=== PATIENT | female | born 1965 | race Caucasian/White ===

== ENCOUNTER 2017-06-20 06:21 | Day surgery (SDC) | payer BC ==
[2017-06-19 15:05] VITALS: BMI 56.4
[~2017-06-20] VITALS: Ht 154.9 cm; Wt 130.0 kg
[~2017-06-20 06:21] MED LIST: AMLO-147 PO; AMPH30CA7 PO; CLON0.3T PO; DESL5TAB29 PO; FERR160T11 PO; LORA10CA PO; MONT4TAB8 PO; MULT-552 PO; TRIA1CAP56 PO; [UNRECOGNIZED DRUG - CODE]
[2017-06-20] MEDS ORDERED: LIDOCAINE 2% (SDV) 5 ML INJ ONE (07:00)
[2017-06-20 07:01] VITALS: Ht 154.9 cm; Wt 130.0 kg
[2017-06-20 07:06] VITALS: BP 140/69; PULSE 101; RESP 19
[2017-06-20] MEDS ORDERED: PROPOFOL 40 ML ONE (08:36)
[2017-06-20 08:42] VITALS: BP 105/47; PULSE 78; RESP 23
--- NOTE | 2017-06-20 08:46 | OPR ---
Date/Time of Note Date/Time of Note DATE: 06/20/17 TIME: 08:42 Operative Report Preoperative Diagnosis r/o pud Postoperative Diagnosis antral erosions Operation/Procedure Performed egd Surgeon see signature line Informatics Pharmacist none Anesthesia Type: MAC Anesthesiologist: KOJO PAEZ Estimated Blood Loss: none Transfusion none Specimen gastric bx Grafts/Implants none Tubes/Drains none Complications none Pt Condition Post Procedure: stable Indications r/o pud Procedure Description egd done under mac antral erosions noted LUCIA SWANSON MD Jun 20, 2017 08:46
[2017-06-20 08:47] VITALS: BP 128/59; PULSE 80; RESP 22
[2017-06-20 08:52] VITALS: BP 116/60; PULSE 85; RESP 25
[2017-06-20 08:57] VITALS: BP 117/60; PULSE 88; RESP 22
[2017-06-20 09:10] VITALS: BP 121/56; PULSE 80; RESP 18
--- NOTE | 2017-06-21 09:30 | GILP ---
DATE OF PROCEDURE: PROCEDURE: Esophagogastroduodenoscopy. PREOPERATIVE DIAGNOSIS: Patient presenting with history of having morbid obesity. She is scheduled to have surgery, which is a gastric sleeve procedure. Procedure needs to be performed to rule out peptic ulcer disease, esophagitis, etc. POSTOPERATIVE DIAGNOSIS: Two antral erosions noted. Biopsies were done H. pylori biopsy also was d one. DESCRIPTION OF PROCEDURE: After the informed written consent was obtained, the patient was brought to the operating room and monitored anesthesia care was given by anesthesiologist, Dr. Lloyd. W hen the patient was somnolent on the left lateral position, Olympus video upper endoscope was introd uced into the oropharynx, then into the esophagus. Entire esophagus appeared normal, no evidence of any mucosal abnormality detected. Scope at this time was advanced into the stomach. Two erosions were noted in the prepyloric area. Multiple biopsies were obtained to rule out malignancy. The res t of the stomach was examined. Some petechia type of lesions were noted in the fundus of the stomac h only to a limited extent. Biopsy was done from the antrum to the lesser curvature of the fundus to rule out H. pylori infection. Duodenum appeared normal up to the end of the third portion. Scop e at this time was withdrawn and no additional abnormalities detected and the procedure was terminat ed. PLAN: Recommend proton pump inhibitor therapy and wait for the pathology report. Dictated By: LUCIA COMBS/NTS Conf#: [id number] DID#: [id number] CC: LUCIA SWANSON MD;*EndCC*
== END 2017-06-20 10:00 | disposition home or self-care (01) ==
LOC: GIL 06:21 → SDS 06:21 → GIL 10:00
PROVIDERS: ATTEND Internal Medicine Gastroenterology
DX: Z01.818 Encounter for other preprocedural examination (principal); E66.01 Morbid (severe) obesity due to excess calories; Z68.43 Body mass index [BMI] 50.0-59.9, adult; J45.909 Unspecified asthma, uncomplicated; K21.9 Gastro-esophageal reflux disease without esophagitis; I10 Essential (primary) hypertension

== ENCOUNTER → 2017-06-30 | Outpatient (CLI) | payer BC ==
[~2017-06-30] MED LIST changes: +REGADENOSON 0.4 MG/5 ML SYG ONE
--- NOTE | 2017-06-30 12:23 | CARRPT ---
DATE OF PROCEDURE: 06/30/2017 REASON FOR STRESS TESTING: Chest pain, shortness of breath, assess for ischemia. Baseline vital si gns and electrocardiogram. Preoperative evaluation electrocardiogram, assess for ischemia. BASELINE VITAL SIGNS AND ELECTROCARDIOGRAM: Pulse 87, blood pressure 143/82. Electrocardiogram rev eals normal sinus rhythm, rate of 87, normal axis, normal intervals, isolated T-wave inversion in le ad aVL. PROCEDURE: The patient with standard Lexiscan infusion protocol over 10 seconds followed by t racer. The patient's test was stopped due to completion of protocol. Maximal achieved blood pressu re during the test 168/80. Maximal heart rate during the test 100. ELECTROCARDIOGRAM FINDINGS: The patient did not develop any new Lexiscan-induced ST or T-wave le es from baseline abnormalities. No documented PVCs. SYMPTOMS: The patient had mild complaints of shortness of breath during stress testing and palpitat ions, but no chest pain. These all resolved during recovery. IMPRESSION: 1. No Lexiscan-induced ST or T-wave changes from baseline abnormalities for cardiac ischemia. 2. No complaints of chest pain during stress testing, mild shortness breath and tachycardia which r esolved in recovery. 3. No documented premature ventricular contractions during stress testing. 4. Report of nuclear images to follow in separate dictation. Dictated By: JUANIS KUMAR/AMAURY Conf#: [id number] DID#: [id number]
--- NOTE | 2017-06-30 13:07 | RADRPT ---
PROCEDURE: Lexiscan myocardial perfusion study CLINICAL INDICATION: 51 -year-old patient complaining of chest pain. TECHNIQUE: Lexiscan 0.4 mg intravenously separate acquisition gated myocardial perfusion SPECT usi ng Tc 99m Myoview 39.4 mCi intravenously at stress and Tc-99m Myoview, 13.1 mCi intravenously at res t was performed using the rest/stress sequence. Poststress Myoview SPECT images were obtained in th e supine position. COMPARISON: No prior studies. FINDINGS: Perfusion images reveal no evidence of perfusion defects. Lexiscan post stress gated SPECT images demonstrate no wall motion abnormalities. IMPRESSION: 1. No evidence of stress-induced ischemia. 2. No wall motion abnormalities. 3. The left ventricle ejection fraction at stress is 70%. A call report was made to Dr. Reed at the 1/5 p.m. on June 30, 2017. RPTAT: HH .Anel Mireles MD, MD Date Time Electronically viewed and signed by .Anel Mireles MD, on 06/30/2017 13:06 .L/
--- NOTE | 2017-06-30 18:27 | RADRPT ---
Echocardiogram Report Patient Name: SHEYLA VANESSA Gender: Female Date: 1965 Study Date: 30-Jun-2017 Cisco Engineer: WOLFGANG Location: OUTPATIENT Ref. Physician: JUANIS REED Quality: Good Procedures: Transthoracic echocardiogram with complete 2D, M-Mode, and doppler examination. Indications: Abnormal EKG. Pre-op. 2D/M Mode Doppler Measurement Value Normal Ranges Measurement Value Normal Ranges AoR Diam MM 2.8 cm OZZIE Vmax 1.9 cm2 ACS MM 1.8 cm OZZIE VTI 1.9 cm2 LA/Ao MM 1.2 AV Peak Panchito 1.5 m/sec LA Dimen MM 3.4 cm AV Peak PG 9.5 mmHg LVIDd 2D 4.7 3.5 - 5.6 cm LVOT Peak Panchito 1.1 m/sec LVIDs 2D 3.1 2.1 - 4.1 cm LVOT Peak PG 5.2 mmHg LVPWd 2D 1.1 0.6 - 1.1 cm MV E Peak Panchito 0.8 m/sec IVSd 2D 1.0 0.6 - 1.1 cm MV A Peak Panchito 1.1 m/sec EDV 2D 102.6 cm3 MV E/A 0.8 ESV 2D 28.7 cm3 MV Decel Time 210 msec EF 2D 64.0 50.0 - 65.0 % MV Decel [place] 4 LVOT Diam 1.8 cm MV E/A 0.8 TR Peak Panchito 2.3 m/sec TR Peak PG 21.7 mmHg Findings Left Ventricle: Normal left ventricular systolic function. Overall, normal left ventricular systolic function. Not all segments visualized. Normal left ventricular cavity size. Normal left ventricular wall thickness. Ejection fraction is visually estimated at 60 %. Tissue Doppler/Mitral Doppler indices are consistent with impaired relaxation (Stage I diastolic dysfunction). Right Ventricle: Normal right ventricular size. Left Atrium: The left atrium is normal in size. Right Atrium: The right atrium is normal in size. Mitral Valve: Normal appearance and function of the mitral valve with trace physiologic regurgitation. Aortic Valve: Normal appearance of the aortic valve. No significant aortic stenosis or insufficiency. Aortic sclerosis without stenosis. Tricuspid Valve: Normal appearance and function of the tricuspid valve with trace physiologic regurgitation. Estimated peak PA systolic pressure 25 mmHg. There is trace tricuspid regurgitation. Pulmonic Valve: Pulmonic valve not well visualized however velocity is normal. Pericardium: Normal pericardium with no significant pericardial effusion. Aorta: Normal aortic root. IVC: The IVC is not well visualized. Conclusions 1.Normal left ventricular systolic function. Overall, normal left ventricular systolic function. Not all segments visualized. Normal left ventricular cavity size. Normal left ventricular wall thickness. Ejection fraction is visually estimated at 60-65 %. Tissue Doppler/Mitral Doppler indices are consistent with impaired relaxation (Stage I diastolic dysfunction). 2.Normal appearance and function of the mitral valve with trace physiologic regurgitation. 3.Normal appearance and function of the tricuspid valve with trace physiologic regurgitation. Estimated peak PA systolic pressure 25 mmHg. There is trace tricuspid regurgitation. Electronically Signed By: Juanis Reed 30-Jun-2017 18:27:02 -0700 Patient Name: SHEYLA VANESSA Study Date: 30-Jun-2017 [id number]
== END | disposition home or self-care (01) ==
LOC: EKG 09:08
PROVIDERS: ATTEND Internal Medicine
DX: Z01.818 Encounter for other preprocedural examination (principal); R07.9 Chest pain, unspecified; R06.02 Shortness of breath
CPT/HCPCS: 78452; 93017; 93306; A9500; A9505; J2785

== ENCOUNTER → 2017-08-14 | Outpatient (CLI) | payer BC ==
[~2017-08-14] MED LIST changes: -REGADENOSON 0.4 MG/5 ML SYG ONE
--- NOTE | 2017-08-14 16:32 | RADRPT ---
PROCEDURE: US Abdomen complete CLINICAL INDICATION: Obesity. Preoperative evaluation. TECHNIQUE: Albert scale and color Doppler ultrasound of the abdomen was performed. Evaluation is part ially limited due to the patient's body habitus. COMPARISON: None available. FINDINGS: Pancreas: Not identified. Liver: Diffuse increased echogenicity, consistent with fatty infiltration. Upper limits of normal in size measuring 18.6 cm. No focal hepatic lesion. Hepatopedal flow in the main portal vein. Gallbladder: No cholelithiasis, gallbladder wall thickening, or pericholecystic fluid. Common bile duct: 7.9 mm in diameter. Right Kidney: 12.9 cm in length. Nonobstructing 5 mm stone at the lower pole. Mild hydronephrosis. N o renal mass. Spleen: Normal in size and echogenicity. Left kidney: 11.5 cm in length. No nephrolithiasis, hydronephrosis, or mass. Visualized aorta and IVC: Unremarkable. Ascites: None. IMPRESSION: 1. Hepatic steatosis and borderline hepatomegaly. 2. Nonobstructing 5 mm stone at the lower pole of the right kidney. Mild right hydronephrosis witho ut a definitive source of obstruction identified. CT of the abdomen and pelvis can be performed for further evaluation. RPTAT: HLBP .Bert Fishman MD, Date Time Electronically viewed and signed by .Bert Fishman MD, MD on 08/14/2017 16:32 .P/
== END | disposition home or self-care (01) ==
LOC: U/S 08:21
PROVIDERS: ATTEND Surgery
DX: E66.9 Obesity, unspecified (principal); Z71.3 Dietary counseling and surveillance
CPT/HCPCS: 76700

== ENCOUNTER → 2017-10-21 | Outpatient (CLI) | END | disposition home or self-care (01) ==

== ENCOUNTER → 2018-02-10 | Outpatient (CLI) | END | disposition home or self-care (01) ==

== ENCOUNTER → 2018-05-08 | Outpatient (CLI) | END | disposition home or self-care (01) ==

== ENCOUNTER → 2018-08-04 | Outpatient (CLI) | END | disposition home or self-care (01) ==

== ENCOUNTER → 2018-08-19 | Outpatient (CLI) | END | disposition home or self-care (01) ==

== ENCOUNTER → 2018-11-02 | Outpatient (CLI) | payer BC | END | disposition home or self-care (01) | LOC: LAB 16:20 | PROVIDERS: ATTEND Surgery | DX: E66.9 Obesity, unspecified (principal); Z98.84 Bariatric surgery status | CPT/HCPCS: 80053; 82525; 82746; 83540; 84425; 84590; 84630; 85025; 85610; 85730 ==

== ENCOUNTER 2019-03-13 12:15 | Emergency (ER) | payer BC ==
[~2019-03-13] VITALS: Ht 157.5 cm; Wt 110.6 kg
[2019-03-13 12:25] VITALS: BP 145/73; PULSE 79; RESP 18; Ht 157.5 cm; Wt 110.6 kg
[2019-03-13] MEDS ORDERED: IBUPROFEN 800 MG TAB PO ONE (13:30)
[2019-03-13] MEDS ORDERED: IBUP800T48 PO (14:09)
--- NOTE | 2019-03-13 14:10 | ERD ---
ER Documentation Chief Complaint Chief Complaint R.ankle pain x yesterday ukn cause HPI 53-year-old female presents the ED complaining of right ankle and foot pain since yesterday. 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 She reports that the pain is looking at the top of her foot and rates as a 8 out of 10 intensity. She classifies as a sharp pain. She states that the pain is worse when walking and does not radiate anywhere. She has not tried any medication. ROS All systems reviewed and are negative except as per history of present illness. Medications Home Meds Active Scripts Ibuprofen* (Motrin*) 800 Mg Tab, 800 MG PO Q6H PRN for PAIN AND OR ELEVATED TEMP, #30 TAB Prov:ARLYN BERNAL PA-C 03/13/19 Reported Medications Multivitamins* (Once Daily*) 1 Tab Tablet, 1 TAB PO DAILY, TAB 01/18/16 [Nortres] No Conflict Check, 777 QAM 01/18/16 Ferrous Sulfate,Dried (Iron) 1 Tab.sa Tablet.sa, 65 TAB.SA PO QAM 01/18/16 Desloratadine (DESLORATADINE) 5 Mg Tab.rapdis, 5 MG PO DAILY, #30 TAB 01/18/16 Triamterene-HCTZ* (Dyazide*) 37.5-25 Mg Capsule, 1 CAP PO DAILY, CAP 01/18/16 Montelukast Sodium* (Singulair*) 4 Mg Tab.chew, 10 MG PO DAILY, TAB.CHEW 12/03/13 Clonidine Hcl* (Clonidine Hcl*) 0.3 Mg Tablet, 0.1 MG PO BID 12/03/13 Loratadine* (Claritin*) 10 Mg Capsule, 10 MG PO DAILY 12/03/13 Amlodipine Besylate* (Amlodipine Besylate*) 10 Mg Tablet, 5 MG PO DAILY 12/03/13 Amphet Lgm-Gaiiou-B-Amphet (Adderall XR) 30 Mg Cap.sr.24h, 30 MG PO DAILY 12/03/13 Allergies Allergies: Coded Allergies: avocado (Verified Allergy, Unknown, 01/18/16) morphine (Verified Allergy, Unknown, 06/19/17) moxifloxacin HCl (Verified Allergy, Unknown, 06/19/17) fluticasone (Unverified Adverse Reaction, Unknown, SINUS HEADACHE, 01/18/16) Uncoded Allergies: WALNUT (Allergy, Unknown, 09/09/15) PMhx/Soc History of Surgery: Yes (adenectomy, tonsilectomy, heal sx, sinuse sx, brest reduction, brest biopsy) Anesthesia Reaction: No Hx Neurological Disorder: No Hx Respiratory Disorders: Yes (astma) Hx Cardiac Disorders: Yes (htn) Hx Psychiatric Problems: No Hx Miscellaneous Medical Probl: No Hx Alcohol Use: No Hx Substance Use: No Hx Tobacco Use: No Smoking Status: Never smoker FmHx Family History: No diabetes Physical Exam Vitals Vital Signs Date Temp Pulse Resp B/P (MAP) Pulse Ox O2 O2 Flow FiO2 Time Delivery Rate 03/13/19 98.3 79 18 145/73 98 12:25 (97) Physical Exam Const: No acute distress Head: Atraumatic Eyes: Normal Conjunctiva ENT: Normal External Ears, Nose and Mouth. Neck: Full range of motion. Resp: Clear to auscultation bilaterally Cardio: Regular rate and rhythm, Abd: Soft, non tender, non distended. Skin: No petechiae or rashes Back: No midline or flank tenderness Ext: No cyanosis, or edema Right foot: tenderness to the top and bottom of right foot. no bruising, no open wounds, no bleeding. 2+ pulses, good sensation, good ROM Neur: Awake and alert Psych: Normal Mood and Affect Results 24 hrs Current Medications Medications Dose Sig/Judith Start Time Status Last (Trade) Ordered Route PRN Stop Time Admin Dose Reason Admin Ibuprofen 800 mg ONCE ONCE 03/13/19 DC 03/13/19 (Motrin) PO 13:30 13:40 03/13/19 13:31 Procedures/MDM ED COURSE: The patient was stable throughout ED course. I kept the patient informed of laboratory and diagnostic imaging results throughout the ED course. DIAGNOSTIC IMAGING: Read by radiologist. PROCEDURE: XR RIGHT ANKLE. CLINICAL INDICATION: Ankle and foot pain for 1 day. Unknown cause. TECHNIQUE: AP and lateral views of the right ankle were performed. COMPARISON: None. FINDINGS: There is heterotopic ossification within the origin of the plantar fascia consistent with chronic fasciosis. There is prominent calcaneal enthesopathy. There is moderate arthrosis between the talus and navicular with dorsal osteophyte formation. No evidence for talar dome osteochondral defect. No acute fracture is identified. There is post-traumatic change adjacent to the medial malleolus. IMPRESSION: 1. Heterotopic ossification within the origin of the plantar fascia consistent with chronic fasciosis. 2. Prominent calcaneal enthesopathy. 3. Moderate talonavicular arthrosis including dorsal osteophyte formation. 4. No acute fracture identified. RPTAT: XX .Andrew Guerra MD, MD Date Time Electronically viewed and signed by .Andrew Guerra MD, on 03/13/2019 13:56 PROCEDURE: XR RIGHT FOOT. CLINICAL INDICATION: Pain of the foot and ankle for 1 day. Unknown cause. TECHNIQUE: Three views of the right foot were obtained. COMPARISON: No prior studies are available for comparison. FINDINGS: There is moderate overall arthrosis of the first metatarsal phalangeal joints seen as a central first metatarsal head subcortical cyst with surrounding sclerosis and lateral osteophytes. No evidence for lesser metatarsal phalangeal joint arthrosis. No evidence for acute fracture. No evidence for bone destructive change. There is heterotopic ossification at the origin of the pl danii fascia consistent with chronic fasciosis. There is chronic calcaneal enthesopathy. There is degenerative change of the talonavicular articulation including dorsal osteophyte formation. IMPRESSION: 1. Ectopic ossification in the origin of the plantar fascia consistent with chronic fasciosis. There is also prominent calcaneal enthesopathy. 2. No evidence for acute fracture, subluxation or dislocation. 3. No erosive changes are seen. 4. Moderate first metatarsal phalangeal joint arthrosis. RPTAT: XX .Andrew Guerra MD, Date Time Electronically viewed and signed by .Andrew Guerra MD, on 03/13/2019 13:55 PROCEDURES: none MEDICATIONS GIVEN: Motrin - no ASE or reactions MEDICAL DECISION MAKING: Patient is a 53-year-old female complaining of right foot and ankle pain x1 day. 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 On physical exam patient was tender to the t op of her right foot and bottom of her foot nonspecifically. X-ray imaging was done no acute bony abnormalities and showing plantar fasciosis. H&P with other data not c/w emergent process (eg. DVT, AAO, compartment syndrome, nec fasc). No signs of ischemia, neurovascular compromise, compartment syndrome, or septic joint, avascular necrosis, or osteomyelitis. Patient already had a brace on and was instructed to keep wearing the brace and was discharged with Motrin and inflammation. She was instructed to follow-up with primary care in 1 to 2 days. Vital signs were reviewed. Patient is afebrile. Patient was not hypoxic. Patient was hemodynamically stable. PRESCRIPTION: Motrin DISCHARGE: At this time, patient is stable for discharge and outpatient management. I have instructed the patient to follow-up with his/her primary care physician in 1-2 days. I have discussed with the patient the possibility of needing to see a specialist for further workup and imaging studies if symptoms persist. I have instructed the patient to promptly return to the ER for any new or worsening symptoms including increased pain, fever, nausea, vomiting, weakness or LOC. The patient and/or family expressed understanding of and agreement with this plan. All questions were answered. Home care instructions were provided. Disclaimer: Inadvertent spelling and grammatical errors are likely due to EHR/dictation software use and do not reflect on the overall quality of patient care. Also, please note that the electronic time recorded on this note does not necessarily reflect the actual time of the patient encounter. Departure Diagnosis: Primary Impression: Plantar fasciitis Additional Impressions: Foot pain Laterality: right Qualified Codes: M79.671 - Pain in right foot Ankle pain Chronicity: acute Laterality: right Qualified Codes: M25.571 - Pain in right ankle and joints of right foot Condition: Fair Patient Instructions: Plantar Fasciitis Referrals: [facility] YOU HAVE RECEIVED A MEDICAL SCREENING EXAM AND THE RESULTS INDICATE THAT YOU DO NOT HAVE A CONDITION THAT REQUIRES URGENT TREATMENT IN THE EMERGENCY DEPARTMENT. FURTHER EVALUATION AND TREATMENT OF YOUR CONDITION CAN WAIT UNTIL YOU ARE SEEN IN YOUR DOCTORS OFFICE WITHIN THE NEXT 1-2 DAYS. IT IS YOUR RESPONSIBILITY TO MAKE AN APPOINTMENT FOR FOLOW-UP CARE. IF YOU HAVE A PRIMARY DOCTOR --you should call your primary doctor and schedule an appointment IF YOU DO NOT HAVE A PRIMARY DOCTOR YOU CAN CALL OUR PHYSICIAN REFERRAL HOTLINE AT IF YOU CAN NOT AFFORD TO SEE A PHYSICIAN YOU CAN CHOSE FROM THE FOLLOWING [facility] [address] [facility] [address] [facility] [address] [facility] [address] [facility] [address] [facility]. [facility] [address] [facility]. [facility] YOU HAVE RECEIVED A MEDICAL SCREENING EXAM AND THE RESULTS INDICATE THAT YOU DO NOT HAVE A CONDITION THAT REQUIRES URGENT TREATMENT IN THE EMERGENCY DEPARTMENT. FURTHER EVALUATION AND TREATMENT OF YOUR CONDITION CAN WAIT UNTIL YOU ARE SEEN IN YOUR DOCTORS OFFICE WITHIN THE NEXT 1-2 DAYS. IT IS YOUR RESPONSIBILITY TO MAKE AN APPOINTMENT FOR FOLOW-UP CARE. IF YOU HAVE A PRIMARY DOCTOR --you should call your primary doctor and schedule and appointment IF YOU DO NOT HAVE A PRIMARY DOCTOR YOU CAN CALL OUR PHYSICIAN REFERRAL HOTLINE AT . IF YOU CAN NOT AFFORD TO SEE A PHYSICIAN YOU CAN CHOSE FROM THE FOLLOWING [facility]: [facility] [address] [place] [address] [facility] [address] [place] [address] [facility] [place] [address] [place] [address] [facility] 7 a.m.- 11 p.m. Every Day of the Week NO APPOINTMENT OR AUTHORIZATION NEEDED Additional Instructions: Call your primary care doctor TOMORROW for an appointment during the next 1-2 days.See the doctor sooner or return here if your condition worsens before your appointment time. ARLYN BERNAL PA-C Mar 13, 2019 14:10
== END 2019-03-13 14:23 | disposition home or self-care (01) ==
LOC: FTE 12:15
DX: M72.2 Plantar fascial fibromatosis (principal); M79.671 Pain in right foot; I10 Essential (primary) hypertension; J45.909 Unspecified asthma, uncomplicated
CPT/HCPCS: 73630

== ENCOUNTER → 2019-03-29 | Outpatient (CLI) | payer BC ==
[~2019-03-29] MED LIST changes: +IBUP800T48 PO
== END | disposition home or self-care (01) ==
LOC: LAB 15:30
PROVIDERS: ATTEND Surgery
DX: E66.01 Morbid (severe) obesity due to excess calories (principal); Z98.84 Bariatric surgery status
CPT/HCPCS: 80053; 82150; 82746; 83540; 85025; 85610; 85730

== ENCOUNTER → 2019-04-13 | Outpatient (CLI) | payer BC | END | disposition home or self-care (01) | LOC: U/S 10:06 | PROVIDERS: ATTEND Internal Medicine | DX: R79.89 Other specified abnormal findings of blood chemistry (principal); E28.2 Polycystic ovarian syndrome | CPT/HCPCS: 76775; 76830; 76856 ==